=== PATIENT | male | born 1965 | race Caucasian/White ===

== ENCOUNTER → 2024-03-20 | Outpatient (CLI) | payer MEDICAID | END | disposition home or self-care (01) | LOC: RAD 12:35 | PROVIDERS: ATTEND Urology | DX: R19.5 Other fecal abnormalities (principal); Z87.442 Personal history of urinary calculi | CPT/HCPCS: 74018 ==

== ENCOUNTER → 2024-04-24 | Outpatient (CLI) | payer MEDICAID ==
[~2024-04-24] MED LIST: iohexol 350MG/ML 100ml bottle IV ONE
== END | disposition home or self-care (01) ==
LOC: RAD 14:26
PROVIDERS: ATTEND Physician Assistant
DX: R06.02 Shortness of breath (principal); N28.1 Cyst of kidney, acquired; N20.0 Calculus of kidney
CPT/HCPCS: 71275; Q9967